=== PATIENT | female | born 1970 | race Two or more races ===

== ENCOUNTER 2021-05-06 01:51 | Emergency (ER) | payer OTHER ==
[~2021-05-06] VITALS: Ht 152.4 cm; Wt 90.7 kg
[~2021-05-06 01:51] MED LIST: LOPRESSOR HCT 51 TAB; VASOTEC2.5 MG
[2021-05-06] MEDS ORDERED: IRBESARTAN-HCT1 EACH (02:09)
[2021-05-06] MEDS ORDERED: KETO10TA2 PO (04:20)
== END 2021-05-06 04:25 | disposition home or self-care (01) ==
LOC: ER 01:51
DX: M25.512 Pain in left shoulder (principal)

== ENCOUNTER 2021-08-24 18:04 | Emergency (ER) | payer OTHER ==
[~2021-08-24] VITALS: Ht 152.4 cm; Wt 86.2 kg
[~2021-08-24 18:04] MED LIST changes: +IRBESARTAN-HCT1 EACH; +KETO10TA2 PO
[2021-08-24] MEDS ORDERED: KETO10TA2 PO (19:54)
== END 2021-08-24 21:04 | disposition home or self-care (01) ==
LOC: ER 18:04
DX: S90.121A Contusion of right lesser toe(s) without damage to nail, initial encounter (principal); W10.8XXA Fall (on) (from) other stairs and steps, initial encounter; Y93.89 Activity, other specified; Y92.018 Other place in single-family (private) house as the place of occurrence of the external cause; Y99.8 Other external cause status

== ENCOUNTER 2023-06-25 08:29 | Outpatient (CLI) | payer OTHER | END 2023-06-25 08:35 | disposition home or self-care (01) | LOC: RX STUDY 08:29 | PROVIDERS: ATTEND Otolaryngology Otolaryngology/Facial Plastic Surgery | DX: R13.10 Dysphagia, unspecified (principal); C73 Malignant neoplasm of thyroid gland ==